=== PATIENT | female | born 1985 | race Caucasian/White ===

== ENCOUNTER 2019-09-13 00:02 | Inpatient (IN) | payer SELFPAY ==
[~2019-09-13] VITALS: Ht 162.6 cm; Wt 89.9 kg
[2019-09-13] VITALS (9 sets, daily range): BP systolic 95–116; BP diastolic 57–71
[2019-09-13] MEDS ORDERED: LACTATED RINGER'S 1000 ML IV STA (01:11)
[2019-09-13] MEDS ORDERED: LR 1,000 ML IV SCH (01:11)
[2019-09-13] MEDS ORDERED: BICITRA 30ML SOLN UDC PO ONE (01:15)
[2019-09-13] MEDS ORDERED: ceFAZolin SOD 2 GM in IV 1 EA IV ONE (01:15)
[2019-09-13] MEDS ORDERED: AZITHROMYCIN INJ 500 MG, VIAL MATE ADAPTER 1 EACH in D5W 250 ML IV ONE (01:15)
[2019-09-13 01:25] LABS: HEMATOCRIT 36.8 % (36.0-47.0); HEMOGLOBIN 11.8 g/dl (12.0-15.5); MEAN CORPUSCULAR HEMOGLOBIN 26.1 pg (27.0-33.0); MEAN CORPUSCULAR HGB CONC 32.1 g/dl (32.0-36.5); MEAN CORPUSCULAR VOLUME 81.4 fl (80.0-96.0); PLATELET COUNT, AUTOMATED 311 10^3/uL (150-450); RED BLOOD COUNT 4.52 10^6/uL (4.00-5.40); WHITE BLOOD COUNT 15.2 10^3/uL (4.0-10.0)
[2019-09-13 01:49] LABS: ALBUMIN 2.8 GM/DL (3.2-5.2); ALT/SGPT 22 U/L (12-78); BILIRUBIN,TOTAL 0.3 MG/DL (0.2-1.0); BLOOD UREA NITROGEN 8 MG/DL (7-18); CALCIUM LEVEL 9.1 MG/DL (8.5-10.1); CARBON DIOXIDE LEVEL 24 MEQ/L (21-32); CHLORIDE LEVEL 106 MEQ/L (98-107); GLOMERULAR FILTRATION RATE > 60.0 (>60); GLUCOSE, FASTING 80 MG/DL (70-100); LDH LACTATE DEHYDROGENASE 189 U/L (84-246); POTASSIUM SERUM 3.6 MEQ/L (3.5-5.1); SODIUM LEVEL 139 MEQ/L (136-145); TOTAL PROTEIN 6.4 GM/DL (6.4-8.2); URIC ACID 3.3 MG/DL (2.6-6.0)
[2019-09-13] MEDS ORDERED: KETOROLAC 60 MG/2 ML VIAL (J1885) As Ordered ONE (02:23)
[2019-09-13] MEDS ORDERED: dexameTHASONE 4 MG/ML 1ML VIAL (J1100 PER 1MG) As Ordered ONE (02:23)
[2019-09-13] MEDS ORDERED: OXYTOCIN INJ 10 UNITS/ML VIAL (J2590) As Ordered ONE (02:23)
[2019-09-13] MEDS ORDERED: ONDANSETRON 4MG/2ML VIAL (J2405) As Ordered ONE (02:23)
[2019-09-13] MEDS ORDERED: MORPHINE PRES-FREE INJ 10 MG/10 ML VIAL (J2274) As Ordered ONE (02:23)
[2019-09-13] MEDS ORDERED: PHENYLephrine HCL 500 MCG/5 ML (100MCG/ML) SYRINGE (J2370) As Ordered ONE (02:25)
[2019-09-13] MEDS: LR 1,000 ML IV SCH ×2 (03:04→19:04)
[2019-09-13] MEDS ORDERED: OXYTOCIN DRIP 30 UNITS in IV 1 EA IV SCH (03:04)
[2019-09-13] MEDS ORDERED: ACETAMINOPHEN 500 MG TAB PO PRN (03:15)
[2019-09-13] MEDS ORDERED: PERCOCET 5MG/325MG TAB PO PRN ×2 (03:15)
[2019-09-13] MEDS ORDERED: MEASLES,MUMPS,RUBELLA VACCINE INJ (MMR-II) (90707) SC SCH (03:15)
[2019-09-13] MEDS ORDERED: RHOGAM 300 MCG (1500 IU) INJ (J2790) IM SCH (03:15)
[2019-09-13] MEDS ORDERED: PROMETHAZINE 25 MG TAB PO PRN (03:15)
[2019-09-13] MEDS ORDERED: ONDANSETRON 4MG/2ML VIAL (J2405) IV PRN ×2 (03:15→03:30)
[2019-09-13] MEDS ORDERED: oxyCODONE 5MG TAB PO PRN (03:30)
[2019-09-13] MEDS ORDERED: fentaNYL 100 MCG/2 ML INJECTION (J3010) IV PRN (03:30)
[2019-09-13 03:32] LABS: CREATININE,RANDOM URINE 59.5 MG/DL; TOTAL PROTEIN,RANDOM URINE 8.6 MG/DL (0.0-12.0)
[2019-09-13] MEDS: KETOROLAC 30 MG/ML VIAL (J1885) IV SCH ×3 (08:33→20:30)
[2019-09-13] MEDS: DOCUSATE SODIUM 100 MG CAP PO SCH (10:00)
[2019-09-13] MEDS: PRENATAL VITAMINS CHEWABLE TABLET PO SCH (10:04)
[2019-09-14 02:00] VITALS: BP 134/69
[2019-09-14] MEDS: IBUPROFEN 800 MG TAB PO SCH ×3 (04:20→20:46)
[2019-09-14 06:00] VITALS: BP 111/59
[2019-09-14 06:59] LABS: HEMATOCRIT 32.1 % (36.0-47.0); HEMOGLOBIN 10.4 g/dl (12.0-15.5); MEAN CORPUSCULAR HGB CONC 32.4 g/dl (32.0-36.5); MEAN CORPUSCULAR VOLUME 83.4 fl (80.0-96.0); PLATELET COUNT, AUTOMATED 258 10^3/uL (150-450); RED BLOOD COUNT 3.85 10^6/uL (4.00-5.40); WHITE BLOOD COUNT 13.6 10^3/uL (4.0-10.0)
[2019-09-14] MEDS: PRENATAL VITAMINS CHEWABLE TABLET PO SCH (07:36)
[2019-09-14] MEDS: DOCUSATE SODIUM 100 MG CAP PO SCH ×2 (07:36→20:46)
[2019-09-14 10:00] VITALS: BP 107/62
[2019-09-14 13:58] VITALS: BP 137/76
[2019-09-14 18:02] VITALS: BP 126/78
[2019-09-14 22:00] VITALS: BP 110/63
[2019-09-15] MEDS: IBUPROFEN 800 MG TAB PO SCH ×2 (04:30→09:50)
[2019-09-15 06:00] VITALS: BP 118/75
[2019-09-15 07:00] VITALS: BP 129/76
[2019-09-15] MEDS: PRENATAL VITAMINS CHEWABLE TABLET PO SCH (08:04)
[2019-09-15] MEDS: DOCUSATE SODIUM 100 MG CAP PO SCH (08:04)
[2019-09-15] MEDS ORDERED: IBUP80TA PO (08:46)
--- NOTE | 2019-09-15 08:50 | DSES ---
DATE OF ADMISSION: 09/13/2019 DATE OF DISCHARGE: 09/15/2019 HISTORY: 34-year-old 1 at 37-4/7 weeks gestation presented in active labor with ruptured membranes. She was noted to have a breech presenting fetus on presentation. The patient is [place] and had care at home. HOSPITAL COURSE: The patient was admitted on 09/13/2019. She was noted to be 4 cm dilated and in active labor with ruptured membranes. Due to breech presentation, a decision was made to perform section. On 09/13/2019 the patient underwent primary section for a 6 pound 12 ounce male . The procedure was without complication. Her postoperative course was significant for a hemoglobin of 10.4 g/dL. She had adequate return of bladder and bowel function. She was deemed stable for discharge on postop day 2. ADMISSION DIAGNOSIS: 37 weeks, breech, labor. DISCHARGE DIAGNOSIS: Delivered. PROCEDURE: Primary low transverse section. DISPOSITION: The patient will followup with Dr. Cottrell in two weeks. Instructions were reviewed.
== END 2019-09-15 11:55 | disposition home or self-care (01) | DRG 540 ==
LOC: M LDO 00:02 → M LDI 01:10 → M OBS 05:01
PROVIDERS: ADMIT Advanced Practice Midwife; ATTEND Advanced Practice Midwife
PROC: 10D00Z1 Extraction of Products of Conception, Low, Open Approach (ICD-10-PCS; principal; 2019-09-13 02:31)
DX: O32.1XX0 Maternal care for breech presentation, not applicable or unspecified (principal); O09.523 Supervision of elderly multigravida, third trimester; Z37.0 Single live birth